=== PATIENT | male | born 1950 | race Caucasian/White ===

== ENCOUNTER 2016-04-14 11:41 | Inpatient (IN) | payer OTHER ==
[~2016-04-14] VITALS: Ht 180.3 cm; Wt 98.1 kg
--- NOTE | ~2016-04-14 | D ---
[facility] [place] [address] DISCHARGE SUMMARY Name: IRAIS KINGSTON Room #: 201-P [facility] IN M.R.#: [id number] Admission: 04/14/16 Attend Phys: Mendoza Parkinson Discharge: 04/15/16 Date of : 52 Report #: [id number] THIS REPORT FOR: //name// CC: SHAMAR Parkinson DATE OF SERVICE: 04/15/2016 ADMITTING DIAGNOSES: Non-ST segment elevation myocardial infarction. DISCHARGE DIAGNOSES: 1. Non-ST segment myocardial infarction. 2. Coronary artery disease. 3. Dyslipidemia. PROCEDURES PERFORMED: 1. Left heart catheterization. 2. Percutaneous transluminal coronary angioplasty and stenting of the right coronary artery with a 3.0 x 26 mm Medtronic TAMMIE Resolute stent. 3. Percutaneous revascularization and primary stenting of the left circumflex lesion with a 2.75 x 22 mm Resolute Medtronic TAMMIE stent. DISCHARGE MEDICATIONS: 1. Aspirin 325 daily. 2. Prasugrel 10 mg daily. 3. Simvastatin 40 mg daily. 4. Metoprolol 25 mg daily. 5. Sublingual nitroglycerin p.r.n. 6. Lisinopril 2.5 mg at bedtime. 7. Home medications. ACTIVITY: He is instructed not to do any heavy activity for 7 days. FOLLOW UP: 1. With Dr. Parkinson in 4 weeks. 2. Primary care in 7 to 10 days. BRIEF CLINICAL HISTORY: See history and physical in the chart. HOSPITAL COURSE: The patient was admitted to the hospital for his symptoms of chest discomfort and elevation of his troponins. In view of his risk factors, elevated troponin, and nonspecific ST-T wave changes, he was taken to the catheterization lab which demonstrated LAD with minimal disease and only luminal irregularities. The left circumflex had a proximal first marginal ____ with a high grade subtotal lesion that was stented successfully. There was a small side branch that was compromised with slow flow requiring IV nitroglycerin. At [facility] [address] [place] [address] DISCHARGE SUMMARY Name: IRAIS KINGSTON Room #: 201-P [facility] IN .R.#: [id number] Admission: 04/14/16 Attend Phys: Mendoza Parkinson Discharge: 04/15/16 Date of : 52 Report #: [id number] the same sitting, the right coronary lesion which was quite large was stented successfully without any significant complications. Post-procedure, he did very well, although he did get up prior to instructed orders. On the morning of discharge, he was ambulated without any difficulty off his nitroglycerin, tolerating the medications quite well. He was then discharged in improved and stable condition to follow up with the previous stated instructions and medications. <ELECTRONICALLY SIGNED> By: Mendoza Parkinson MD 04/16/16 1235 1958 51 Mendoza Parkinson MD /nt
--- NOTE | ~2016-04-14 | EKG ---
[address] [place] [address] ELECTROCARDIOGRAM REPORT Name: IRAIS KINGSTON Room #: 201-P ADM IN M.R.#: [id number] Admission: 04/14/16 Attend Phys: Mendoza Parkinson Discharge: Date of : 52 Report #: [id number] THIS REPORT FOR: //name// [facility] ED Test Date: 2016-04-14 Test Time: 11:43:13 Pat Name: IRAIS KINGSTON Department: Room: 201 Gender: M Vice President Of Development: Rodríguez SILVER : 1950 Requested By: Lissette Wilks Order Number: [id number] MD: Maurizio Hernandez Measurements Intervals [place] Rate: 105 P: 60 UT: 160 QRS: 31 QRSD: 89 T: 5 QT: 361 QTc: 478 Interpretive Statements Sinus tachycardia Left atrial enlargement Repol abnrm suggests ischemia, diffuse leads No previous ECG available for comparison Electronically Signed On 04-14-2016 17:06:13 BROILER MANAGER by Maurizio Hernandez [email or web address] <ELECTRONICALLY SIGNED> By: Maurizio Hernandez MD 04/14/16 1706 1143 114 Maurizio Hernandez MD /MAVIS
--- NOTE | ~2016-04-14 | H ---
[facility] [place] [address] HISTORY AND PHYSICAL Name: IRAIS KINGSTON Room #: 201-P [facility] IN M.R.#: [id number] Admission: 04/14/16 Attend Phys: Mendoza Parkinson Discharge: 04/15/16 Date of : 52 Report #: [id number] THIS REPORT FOR: //name// CC: SHAMAR Parkinson DATE OF SERVICE: 04/14/2016 HISTORY OF PRESENT ILLNESS: This is a very pleasant 65-year-old gentleman without prior history of atherosclerotic heart disease though with risk factors of male gender, family history who woke up several days ago with some chest discomfort. The patient had this chest discomfort which was transient and resolved. He did not pay much attention to that and continued until the morning of admission where he developed a retrosternal discomfort which he describes as 10/10. He subsequently sought medical attention by calling EMS and was given aspirin, sublingual nitroglycerin. Upon arrival to the Emergency Room had 2/10 chest discomfort. His EKG did not show any ____ of injury, but did show some nonspecific ST-T wave changes. He has a history of lymphoma in the past which he is in remission from and has not had any significant other issues. He is very active. He exercises daily. He has not had any exertional discomfort whatsoever, but this discomfort that woke him he describes initially a sharp and then a squeezing sensation which made him feel somewhat nervous and anxious. PAST MEDICAL HISTORY: 1. Lymphoma treated with chemo, in remission. 2. Cardiac catheterization in the past, but no significant obstructive disease. 3. Anxiety, depression syndrome. ALLERGIES: CODEINE and SULFA. MEDICATIONS: Clonazepam and Celexa. SOCIAL HISTORY: The patient does not smoke, consume alcohol socially and rarely. He does not follow a particular dietary restriction, but he tries to eat healthy and he does exercise regularly. ELECTROCARDIOGRAM: Normal sinus rhythm, nonspecific ST-T wave changes. REVIEW OF SYSTEMS: Except for symptoms previously mentioned and those commensurate with comorbid state, the 10-point review of systems is negative. PHYSICAL EXAMINATION: GENERAL: Well-developed white male, resting comfortably in no distress. VITAL SIGNS: Noted and reviewed in the chart. HEENT: Normocephalic, atraumatic. Pupils are equal, round, reactive to light and accommodation. Extraocular muscles are intact. Sclerae and conjunctivae [address] [address] HISTORY AND PHYSICAL Name: IRAIS KINGSTON Room #: 201-P [facility] IN .R.#: [id number] Admission: 04/14/16 Attend Phys: Mendoza Parkinson Discharge: 04/15/16 Date of : 52 Report #: [id number] are anicteric. NECK: JVD is normal. Carotid upstrokes are bilaterally symmetrical. No bruits are heard. No thyromegaly. No lymphadenopathy. LUNGS: Clear to auscultation. No wheezes, rhonchi or crackles. No CVA tenderness. CARDIAC: Demonstrates a regular rhythm. Normal first and second heart sounds. No ventricular or atrial gallops, no rubs noted. No murmurs. No lifts or heaves, PMI normal. ABDOMEN: Soft, nontender, nondistended. Normal bowel sounds. EXTREMITIES: Without cyanosis, clubbing or edema. Distal pulses are intact. DTR symmetrical. NEUROLOGIC: Cranial nerves 2-12 are grossly normal and symmetrical. PSYCHIATRIC: Alert, oriented with normal affect. SKIN: Warm and dry. LABORATORY DATA: Demonstrates a BUN and creatinine of 26 and 1.0 and potassium of 3.7. His initial troponin is 1.09. Hand H is 18.1 and 43.7. RADIOLOGIC: Chest x-ray demonstrates no acute processes. IMPRESSION: 1. Non-ST segment myocardial infarction in an individual with significant risk factors. In view of this, I am going to initiate IV nitroglycerin to suppress the pain completely and IV heparin. We will then take him to the lab animal technician as an urgent case so that we can delineate coronary anatomy and assess prognosis and treatment. 2. Anxiety, depression syndrome. I am going make sure we get him on his anxiety medicines so that he can continue under good control with that. 3. History of lymphoma, not an issue at this juncture. <ELECTRONICALLY SIGNED> By: Mendoza Parkinson MD 04/16/16 1235 41 [id number] Mendoza Parkinson MD /nt
--- NOTE | ~2016-04-14 | CATHLAB ---
[facility] [place] [address] INVASIVE PROCEDURE REPORT Name: IRAIS KINGSTON Room #: 201-P [facility] IN ..#: [id number] Admission: 04/14/16 Attend Phys: Mendoza Soto Discharge: 04/15/16 Date of : 52 Date of Service: 04/15/16 [facility] Report #: [id number] THIS REPORT FOR: //name// CC: SHAMAR Parkinson DATE OF SERVICE: 04/14/2016 DATE OF PROCEDURE: 04/14/2016. INDICATIONS: A 65-year-old gentleman with non-ST segment elevation myocardial infarction. PROCEDURES: 1. Left heart catheterization. 2. Selective left and right coronary angiography. 3. Measurement of left ventricular end diastolic pressures. 4. Primary stenting of left circumflex coronary artery lesion with a 2.75 x 22 mm Medtronic Resolute TAMMIE stent to 12 atmospheres. 5. Percutaneous transluminal coronary angioplasty and subsequent stenting with a Medtronic TAMMIE Resolute stent 3.0 x 26 mm to 16 atmospheres. 6. Supervision of conscious sedation. BUS MECHANIC: Dr. Parkinson. BRIEF DESCRIPTION OF PROCEDURE: After informed consent was obtained, the patient was brought to the cardiac catheterization laboratory in stable condition. The patient's right groin was prepped and draped in the usual sterile manner after which lidocaine was then instilled. Utilizing a modified Seldinger technique, the right femoral artery was then accessed. Under fluoroscopic visualization using selective coronary catheters, the right and left coronaries were opacified and visualized. The left ventriculogram was likewise imaged per standard protocol with EDP being measured. Subsequent to this, the sheath was removed, hemostasis achieved. The patient tolerated the procedure well. There were no complications. Subsequent angiography, it was seen appropriate to proceed with revascularization. The 4-Latvian system was then exchanged with a 6-Latvian system with a standard right guide was then engaged in the right coronary ostium. A wire was then advanced under fluoroscopic visualization after appropriate medications were given per protocol. The lesion was then dilated and sized with a standard balloon and subsequent stent was deployed. With excellent results, the guide was then removed and a standard left JL4.5 guide was then engaged to left coronary ostium where the wire was then advanced into the left distal circumflex. A primary stent with a 2.75 x 22 mm TAMMIE stent was [address] [address] INVASIVE PROCEDURE REPORT Name: IRAIS KINGSTON Room #: 201-P [facility] IN .R.#: [id number] Admission: 04/14/16 Attend Phys: Mendoza Soto Discharge: 04/15/16 Date of : 52 Date of Service: 04/15/162003 Report #: [id number] then positioned and inflated to 12 atmospheres with excellent results. There was a side branch that was compromised with some slow flow and some degree of discomfort. This was resolved with IV nitroglycerin and intracoronary nitroglycerin. The patient tolerated the procedure well. There were no complications. FINDINGS: A. Preprocedure aortic pressure 152/74. B. Left ventricular end diastolic pressure is 24-26. C. Post-intervention aortic pressure is 138/74. FLUOROSCOPY: Under fluoroscopic visualization, there was extensive calcific plaquing on the epicardial coronary arteries. No significant plaquing on the valvular intramyocardial structures of the heart. ANGIOGRAPHY: This is right coronary dominant system. a. Left main is of normal origin and caliber, bifurcates left anterior descending and left circumflex free of high grade disease and only has mild luminal irregularities. b. Left anterior descending is a moderate caliber type 3 vessel courses in the anterior interventricular sulcus giving rise to septal and diagonal branches with only mild luminal irregularities of less than 30%. c. Left circumflex is a moderate caliber vessel, courses posteriorly and terminates in the posterolateral wall marginal branch and a terminal portion a small caliber vessel that does not reach the crux of the heart. In this marginal branch is a high grade 95+ % lesion with LILA one flow. d. Right coronary is a large caliber vessel which proceeds in the AV groove with luminal irregularities until the acute marginal where gives rise to marginal branch. It then proceeds with luminal irregularities to the crux of the heart giving rise to moderate to large caliber dominant PDA. There is only luminal irregularities in this vessel, beyond this take off the PDA couple of millimeters vessel was significantly stenosed and long lesion with focal point of 90% stenosis. It reconstitutes giving rise to posterior wall branch and posterior lateral branch and AV courtney branch. e. POST-INTERVENTION ANGIOGRAPHY: 1. Left circumflex is unchanged except for the following: The site of previous high grade stenosis, the vessel is widely patent. There is no distal embolization and intraluminal thrombus noted. LILA flow was 3. A small side branch has LILA 1 flow. 2. The right coronary artery is widely patent without any loss of side branch, distal embolization, intraluminal thrombus noted. IMPRESSION: 1. Coronary artery disease, severe, 2 vessel. 2. Abnormal hemodynamics. [facility] [address] [place] [address] INVASIVE PROCEDURE REPORT Name: IRAIS KINGSTON Room #: 201-P [facility] IN M.R.#: [id number] Admission: 04/14/16 Attend Phys: Mendoza Soto Discharge: 04/15/16 Date of : 52 Date of Service: 04/15/162003 Report #: [id number] 3. Successful percutaneous revascularization of left circumflex coronary artery and the right coronary artery involving Medtronic Resolute TAMMIE stent. <ELECTRONICALLY SIGNED> By: Mendoza Parkinson MD 04/16/16 1235 03 0521 Mendoza Parkinson MD /nt
[2016-04-14 11:42] VITALS: BP 158/94
[2016-04-14 12:01] LABS: ABSOLUTE NEUTROPHILS 6.3 thou/uL (1.4-8.2); BASOPHILS 0.4 % (0.0-2.0); EOSINOPHILS 0.4 % (0.0-3.0); HEMATOCRIT 43.7 % (42.0-52.0); HEMOGLOBIN 15.1 gm/dL (14.0-18.0); LYMPHOCYTES 22.5 % (24.0-44.0); MCH 32.6 pg (26.0-34.0); MCHC 34.5 % (28.0-37.0); MCV 94.4 fL (80.0-100.0); MONOCYTES 7.1 % (1.0-8.0); PLATELET COUNT 135 thou/uL (150-400); POLYS 69.6 % (36.0-66.0); RBC 4.63 mil/uL (4.50-6.00); RDW 12.9 % (10.5-14.5)
[2016-04-14] MEDS ORDERED: CLONAZEPAM 0.50.5 M1 PO (12:04)
[2016-04-14] MEDS ORDERED: CELEXA20 MG PO (12:05)
[2016-04-14 12:06] LABS: MANUAL DIFF NO
[2016-04-14 12:12] LABS: CALCIUM 9.3 mg/dL (8.5-10.1); POTASSIUM 3.7 mmol/L (3.5-5.1)
[2016-04-14 12:23] LABS: TROPONIN-I 1.09 ng/mL (<0.04-0.07)
[2016-04-14 12:50] LABS: APTT 26.1 Seconds (24.5-32.8); PROTIME 10.5 Seconds (9.3-11.4)
[2016-04-14 15:11] VITALS: BP 148/87
[2016-04-14 15:30] LABS: CHOLESTEROL 199 mg/dL (<200); HDL CHOLESTEROL 58 mg/dL (>40); LDL CHOLESTEROL 124 mg/dL (<100); TC:HDL 3.4 Ratio (Not establshd); TRIGLYCERIDE 87 mg/dL (<150); VLDL 17 mg/dL (<40)
[2016-04-14 17:20] VITALS: BP 144/100
[2016-04-14 19:30] VITALS: BP 146/100
[2016-04-14 21:07] LABS: GLYCOHEMOGLOBIN (HGB A1C) 5.3 % (4.8-5.6)
[2016-04-14 23:58] VITALS: BP 127/74
[2016-04-15 03:14] VITALS: BP 103/55
[2016-04-15 04:06] LABS: CALCIUM 8.4 mg/dL (8.5-10.1); CREATININE 0.8 mg/dL (0.6-1.3); POTASSIUM 3.5 mmol/L (3.5-5.1)
[2016-04-15 07:45] VITALS: BP 130/81
[2016-04-15 08:14] LABS: TSH 15.44 uIU/mL (0.450-4.500)
[2016-04-15 11:54] VITALS: BP 123/70
[2016-04-15 14:50] VITALS: BP 123/70
[2016-04-15 15:17] VITALS: BP 123/70
== END 2016-04-15 14:30 | disposition home or self-care (01) | DRG 247 ==
LOC: ER 11:41 → EROBS 12:26 → 2N 12:26
PROVIDERS: Emergency Medicine; Internal Medicine; Nurse Practitioner
DX: I21.4 Non-ST elevation (NSTEMI) myocardial infarction (principal); I10 Essential (primary) hypertension; I25.10 Atherosclerotic heart disease of native coronary artery without angina pectoris; E78.5 Hyperlipidemia, unspecified; F41.9 Anxiety disorder, unspecified; F32.9 Major depressive disorder, single episode, unspecified; Z98.61 Coronary angioplasty status; Z88.6 Allergy status to analgesic agent; Z88.2 Allergy status to sulfonamides; Z85.72 Personal history of non-Hodgkin lymphomas; Z82.49 Family history of ischemic heart disease and other diseases of the circulatory system; Z79.82 Long term (current) use of aspirin; Z79.899 Other long term (current) drug therapy
CPT/HCPCS: 10081; 10194